=== PATIENT | female | born 1960 ===

== ENCOUNTER 2022-01-02 12:15 | Inpatient (IN) | payer OTHER ==
[~2022-01-02] VITALS: Ht 172.7 cm; Wt 83.0 kg
[2022-01-02] MEDS ORDERED: TOPROL XL25 M1 PO (14:21)
[2022-01-02] MEDS ORDERED: LIPIT PO (14:21)
[2022-01-02] MEDS ORDERED: FOLIC A PO (14:22)
[2022-01-02] MEDS ORDERED: BAYER THERAPY325 MG PO (14:22)
[2022-01-02] MEDS ORDERED: METROTEXATE PO (14:23)
[2022-01-02] MEDS ORDERED: HUMIRA (14:24)
[2022-01-03] MEDS ORDERED: LIPITOR40 M1 PO (11:18)
[2022-01-03] MEDS ORDERED: FOLIC ACID0.8 M1 PO (11:18)
[2022-01-03] MEDS ORDERED: HUMIRA40 MG/0.2 (11:19)
[2022-01-03] MEDS ORDERED: METHOTREXATE2.5 MG (11:19)
== END 2022-01-05 15:19 | disposition home or self-care (01) | DRG 735 ==
LOC: OB/GYN 01-03 06:44 → O/R 01-03 06:44 → OB/GYN 01-03 12:15
PROVIDERS: ADMIT Specialist; ATTEND Specialist
PROC: 07TD4ZZ Resection of Aortic Lymphatic, Percutaneous Endoscopic Approach (ICD-10-PCS; 2022-01-03)
PROC: 0UT9FZZ Resection of Uterus, Via Natural or Artificial Opening With Percutaneous Endoscopic Assistance (ICD-10-PCS; 2022-01-03)
PROC: 0UT7FZZ Resection of Bilateral Fallopian Tubes, Via Natural or Artificial Opening With Percutaneous Endoscopic Assistance (ICD-10-PCS; 2022-01-03)
PROC: 0UT2FZZ Resection of Bilateral Ovaries, Via Natural or Artificial Opening With Percutaneous Endoscopic Assistance (ICD-10-PCS; 2022-01-03)
PROC: 3E1M38Z Irrigation of Peritoneal Cavity using Irrigating Substance, Percutaneous Approach (ICD-10-PCS; 2022-01-03)
PROC: 07TC4ZZ Resection of Pelvis Lymphatic, Percutaneous Endoscopic Approach (ICD-10-PCS; principal; 2022-01-03 10:15)
DX: C54.1 Malignant neoplasm of endometrium (principal); Z20.822 Contact with and (suspected) exposure to COVID-19